=== PATIENT | male | born 1970 | race Caucasian/White ===

== ENCOUNTER 2016-09-12 11:17 | Emergency (ER) | payer OTHER ==
[2016-09-12 11:24] LABS: Glucose,Whole Blood 132 mg/dL (75-99)
[2016-09-12 11:32] VITALS: RESP 18
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
[2016-09-12 14:01] VITALS: BP 122/62; PULSE 78; TEMP 98.1
== END 2016-09-12 13:45 | disposition home or self-care (01) ==
LOC: EC 11:17
DX: M54.2 Cervicalgia (principal); R20.2 Paresthesia of skin; R45.1 Restlessness and agitation; I10 Essential (primary) hypertension; E11.9 Type 2 diabetes mellitus without complications; F31.9 Bipolar disorder, unspecified; F41.9 Anxiety disorder, unspecified; F17.200 Nicotine dependence, unspecified, uncomplicated; Z79.4 Long term (current) use of insulin; Z79.82 Long term (current) use of aspirin; Z79.84 Long term (current) use of oral hypoglycemic drugs; Z79.899 Other long term (current) drug therapy; Z88.0 Allergy status to penicillin; Z87.828 Personal history of other (healed) physical injury and trauma; Z98.890 Other specified postprocedural states; V53.6XXA Passenger in pick-up truck or van injured in collision with car, pick-up truck or van in traffic accident, initial encounter; Y92.410 Unspecified street and highway as the place of occurrence of the external cause
CPT/HCPCS: 36415; 70450; 72125; 93005; 99284

== ENCOUNTER 2017-09-10 03:15 | Emergency (ER) | payer BC | END 2017-09-10 05:05 | disposition home or self-care (01) | LOC: EC 03:15 | DX: F20.9 Schizophrenia, unspecified (principal); F17.200 Nicotine dependence, unspecified, uncomplicated; Z79.899 Other long term (current) drug therapy; Z88.0 Allergy status to penicillin | CPT/HCPCS: 82075; 99284 ==

== ENCOUNTER 2017-09-15 14:32 | Inpatient (IN) | payer BC, OTHER ==
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
[2017-09-15 16:03] LABS: Amphetamine Screen,Urine Not Detected (NotDetected); Barbiturate Screen,Urine Not Detected (NotDetected); Benzodiazepines Screen,Urine Detected (NotDetected); Cocaine Screen,Urine Not Detected (NotDetected); Methadone Screen, Urine Not Detected (NotDetected); Opiate Screen,Urine Detected (NotDetected); Oxycodone Screen, Urine Not Detected (NotDetected); Phencyclidine Screen,Urine Not Detected (NotDetected); Tricyclic Antidepressant,Urine Not Detected (NotDetected); Urn Cannabinoid Scrn Not Detected (NotDetected)
[2017-09-15] MEDS ORDERED: ACETAMINOPHEN TAB 325 MG TAB PO PRN (20:20)
[2017-09-15] MEDS ORDERED: LORazepam 1 MG TAB PO PRN (20:20)
[2017-09-15] MEDS ORDERED: MAG HYDROX/AL HYDROX/SIMETH 30 ML CUP PO PRN (20:20)
[2017-09-15] MEDS ORDERED: ZIPRASIDONE 20 MG VIAL IM PRN (20:20)
[2017-09-15] MEDS ORDERED: MAGNESIUM HYDROXIDE 2,400 MG/10 ML CUP PO PRN (20:20)
[2017-09-15] MEDS ORDERED: LORazepam 2 MG/ML INJ IM PRN (20:26)
[2017-09-15] MEDS: FENOFIBRATE 160 MG TAB PO SCH (21:12)
[2017-09-15] MEDS: diphenhydrAMINE 50 MG CAP PO SCH (21:13)
[2017-09-15] MEDS: LITHIUM CARBONATE 300 MG CAP PO SCH (21:13)
[2017-09-15] MEDS: NICOTINE 14MG/24HR PATCH TRANSDERM SCH (21:13)
[2017-09-15 22:12] LABS: Glucose,Whole Blood 266 mg/dL (75-99)
[2017-09-15] MEDS: INSULIN ASPART 100 UNIT/ML 1 ML 10 ML VIAL SQ SCH (22:12)
[2017-09-16 05:53] LABS: Glucose,Whole Blood 196 mg/dL (75-99)
[2017-09-16 06:12] LABS: Appearance,Urine Clear (Clear); Bilirubin,Urine Negative (Negative); Blood,Urine Negative (Negative); Color,Urine Yellow; Glucose,Urine (UA) Trace (Negative); Ketones,Urine Negative (Negative); Leukocyte Esterase,Urine Negative (Negative); Nitrite,Urine Negative (Negative); Protein,Urine Negative (Negative); Specific Gravity,Urine 1.015 (1.001-1.035); Urobilinogen,Urine <2.0 mg/dL (<2.0)
[2017-09-16] MEDS: PANTOPRAZOLE 40 MG TABLET PO SCH (07:56)
[2017-09-16] MEDS: metFORMIN 500 MG TAB PO SCH ×2 (07:57→17:50)
[2017-09-16] MEDS: INSULIN ASPART 100 UNIT/ML 1 ML 10 ML VIAL SQ SCH ×4 (07:57→20:17)
[2017-09-16] MEDS: LOSARTAN 50 MG TAB PO SCH (08:42)
[2017-09-16] MEDS ORDERED: B COMPLEX-VIT C-VIT E-ZINC 1 EACH TAB PO SCH (09:00)
[2017-09-16] MEDS: NICOTINE 14MG/24HR PATCH TRANSDERM SCH (09:04)
[2017-09-16] MEDS: NON-FORMULARY DRUG (Liraglutide [Victoza 2-Pak] 1.8 MG) SQ SCH (09:15)
[2017-09-16 09:54] LABS: Basophils % (A) 1 %; Eosinophils # (A) 0.2 k/uL (0-0.7); Eosinophils % (A) 3 %; HCT 42.3 % (39.0-53.0); HGB 13.9 gm/dL (13.0-17.5); Lymphocytes # (A) 1.3 k/uL (1.0-4.8); Lymphocytes % (A) 17 %; MCH 29.6 pg (25.0-35.0); MCHC 32.9 g/dL (31.0-37.0); MCV 90.1 fL (80.0-100.0); Monocytes # (A) 0.5 k/uL (0-1.0); Monocytes % (A) 6 %; Neutrophils # (A) 5.4 k/uL (1.3-7.7); Neutrophils % (A) 72 %; Platelet Count 213 k/uL (150-450); RDW 12.8 % (11.5-15.5); WBC 7.5 k/uL (3.8-10.6)
[2017-09-16 11:08] LABS: ALT 48 U/L (21-72); AST 29 U/L (17-59); Albumin 4.1 g/dL (3.5-5.0); Alkaline Phosphatase 49 U/L (38-126); Anion Gap 6 mmol/L; Blood Urea Nitrogen 19 mg/dL (9-20); Calcium 9.6 mg/dL (8.4-10.2); Carbon Dioxide 29 mmol/L (22-30); Chloride 103 mmol/L (98-107); Cholesterol 131 mg/dL (<200); Glucose 281 mg/dL (74-99); HDL Cholesterol 40 mg/dL (40-60); LDL Cholesterol,Calculated 73 mg/dL (0-99); Lithium 0.7 mmol/L; Potassium 4.4 mmol/L (3.5-5.1); Sodium 138 mmol/L (137-145); Total Bilirubin 0.4 mg/dL (0.2-1.3); Total Protein 6.8 g/dL (6.3-8.2); Triglycerides 90 mg/dL (<150)
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
[2017-09-16 12:18] LABS: Glucose,Whole Blood 223 mg/dL (75-99)
[2017-09-16] MEDS: CYANOCOBALAMIN 500 MCG TAB PO SCH (12:59)
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
[2017-09-16] MEDS: PIOGLITAZONE 15 MG TAB PO SCH (14:49)
[2017-09-16 17:49] LABS: Glucose,Whole Blood 216 mg/dL (75-99)
[2017-09-16 19:58] LABS: Glucose,Whole Blood 231 mg/dL (75-99)
[2017-09-16 20:15] LABS: Hemoglobin A1C 7.7 % (4.0-6.0)
[2017-09-16] MEDS: LITHIUM CARBONATE 300 MG CAP PO SCH (21:10)
[2017-09-16] MEDS: diphenhydrAMINE 50 MG CAP PO SCH (21:11)
[2017-09-16] MEDS: FENOFIBRATE 160 MG TAB PO SCH (21:11)
[2017-09-17 00:15] LABS: Glucose,Whole Blood 220 mg/dL (75-99)
[2017-09-17 06:05] LABS: Glucose,Whole Blood 240 mg/dL (75-99)
[2017-09-17] MEDS ORDERED: INSULIN ASPART 100 UNIT/ML 1 ML 10 ML VIAL SQ SCH (07:30)
[2017-09-17] MEDS: INSULIN ASPART 100 UNIT/ML 1 ML 10 ML VIAL SQ SCH ×4 (08:09→20:27)
[2017-09-17] MEDS: NICOTINE 14MG/24HR PATCH TRANSDERM SCH (08:57)
[2017-09-17] MEDS: LOSARTAN 50 MG TAB PO SCH (08:57)
[2017-09-17] MEDS: PANTOPRAZOLE 40 MG TABLET PO SCH (08:57)
[2017-09-17] MEDS: metFORMIN 500 MG TAB PO SCH ×2 (08:57→17:36)
[2017-09-17] MEDS: PIOGLITAZONE 15 MG TAB PO SCH (08:57)
--- NOTE | 2017-09-17 09:28 | P.PN ---
Progress Note - Text Interval history: The patient is found in the hallway he follows me to an interview room. He reports that his mood has improved. He reports sleeping much better last night however staff reported he only slept 3 hours. He reports looking forward to a visit from his girlfriend and other family members. Appetite stable. He has been showering. We reviewed his current medication. He does not feel the Benadryl is helpful for sleep and we discussed several other options. He has been tried on several other sleep aids and we want to avoid any habit forming ones. We decided to initiate Seroquel and he was agreeable. Mental status exam: The patient is an alert male appearing his stated age. He has long hair he's mildly disheveled hygiene is adequate. Speech is fluent spontaneous nonpressured. He maintains a constricted affect. He does continue to demonstrate some disorganization of thought that it seems less severe than yesterday. He likely has some paranoid thinking. When we discussed that topic he begins to endorse it and then stops himself from providing a full explanation. He demonstrates no verbal or physical aggressiveness he demonstrates no abnormal involuntary movements. Insight and judgment limited. He is pleasant and cooperative and easily directed during the session. He is reporting no auditory or visual hallucinations. Plan: The patient will continue on his current psychotropic medication. We will consider titrating the lithium further. I will add Seroquel to assist with sleep and thought organization. Benadryl will be discontinued. Vital signs reviewed. We will continue to monitor him for safety and encourage his full participation in the milieu.
[2017-09-17] MEDS: NON-FORMULARY DRUG (Liraglutide [Victoza 2-Pak] 1.8 MG) SQ SCH (11:43)
[2017-09-17 12:10] LABS: Glucose,Whole Blood 218 mg/dL (75-99)
[2017-09-17] MEDS: NON-FORMULARY DRUG (Liraglutide [Victoza 2-Pak] 0.6 MG) SQ SCH (12:10)
[2017-09-17] MEDS: CYANOCOBALAMIN 500 MCG TAB PO SCH (12:16)
[2017-09-17 15:31] LABS: Glucose,Whole Blood 203 mg/dL (75-99)
[2017-09-17 17:10] LABS: Glucose,Whole Blood 204 mg/dL (75-99)
[2017-09-17 20:42] LABS: Glucose,Whole Blood 194 mg/dL (75-99)
[2017-09-17] MEDS: QUEtiapine 50 MG TAB PO SCH (21:03)
[2017-09-17] MEDS: LITHIUM CARBONATE 300 MG CAP PO SCH (21:03)
[2017-09-17] MEDS: FENOFIBRATE 160 MG TAB PO SCH (21:03)
[2017-09-18 06:20] LABS: Glucose,Whole Blood 182 mg/dL (75-99)
[2017-09-18] MEDS: metFORMIN 500 MG TAB PO SCH ×2 (08:04→17:45)
[2017-09-18] MEDS: PANTOPRAZOLE 40 MG TABLET PO SCH (08:04)
[2017-09-18] MEDS: PIOGLITAZONE 15 MG TAB PO SCH (08:04)
[2017-09-18] MEDS: LOSARTAN 50 MG TAB PO SCH (08:05)
[2017-09-18] MEDS: NON-FORMULARY DRUG (Liraglutide [Victoza 2-Pak] 0.6 MG) SQ SCH (08:09)
[2017-09-18] MEDS: INSULIN ASPART 100 UNIT/ML 1 ML 10 ML VIAL SQ SCH ×5 (08:09→20:20)
[2017-09-18] MEDS: NICOTINE 14MG/24HR PATCH TRANSDERM SCH (08:18)
[2017-09-18 12:01] LABS: Glucose,Whole Blood 201 mg/dL (75-99)
[2017-09-18] MEDS: CYANOCOBALAMIN 500 MCG TAB PO SCH (13:06)
--- NOTE | 2017-09-18 13:37 | P.PN ---
Progress Note - Text Progress Note Date: 09/18/17 Interval History: Patient is a 46-year-old male who is being seen in coverage for Dr. Knight. Patient states that he slept better last night with the Seroquel. He also told me that he filled out his menu today. When asking the patient other questions he would begin to start responding and then stop and not complete his thought. When asked if he was feeling suspicious or paranoid. Patient started to discuss this and then abruptly stopped the conversation. Patient stated that he felt more rested today and stated that he was attending groups and activities. Mental Status: Appearance/Attitude: Patient is casually dressed, made good eye contact and was cooperative Behavior: Patient did not exhibit any psychomotor agitation or retardation Speech/Language: Patient spoke in a normal volume and rhythm, he was coherent and responded to questions Thought Process: Patient would begin to respond to a question and then abruptly stop and not complete the thought Thought Content: Patient denied auditory or visual hallucinations, when asking about feeling paranoid or suspicious he began to answer the question and then abruptly stopped. Patient stated that he slept last night and felt more rested this morning, he stated that his thinking was clear. Patient reported that his appetite is good and that he filled out his own menu today. Suicidal/Homicidal Ideation: Patient denied any current suicidal or homicidal ideation Sensorium/Cognition: Patient was alert and oriented to person, place, and time and his recent and remote memory appear grossly intact Mood/Affect: Patient's mood is guarded, his affect is blunted Insight/Judgment: Patient's insight and judgment are fair Assessment: Patient came to the interview room willingly, he responded to yes no questions appropriately but when asked questions where he needed to elaborate he would begin to answer the question and then abruptly stop and not complete his thought or provide further information. Patient has been attending groups and activities. He reported that he slept better last night and felt more rested this morning with the Seroquel. Patient stated that his appetite was good. Patient stated that his thinking was clearer today. Plan: Patient will continue on lithium 900 mg at bedtime, Seroquel 50 mg at at bedtime and he has been maintained on Abilify long-acting injectable. Patient continues to require hospitalization to further stabilize his mood.
[2017-09-18 17:36] LABS: Glucose,Whole Blood 173 mg/dL (75-99)
[2017-09-18 20:15] LABS: Glucose,Whole Blood 167 mg/dL (75-99)
[2017-09-18] MEDS: GABAPENTIN 100 MG CAP PO PRN (20:22)
[2017-09-18] MEDS: FENOFIBRATE 160 MG TAB PO SCH (20:22)
[2017-09-18] MEDS: LITHIUM CARBONATE 300 MG CAP PO SCH (20:22)
[2017-09-18] MEDS: QUEtiapine 50 MG TAB PO SCH (20:23)
[2017-09-19 06:11] LABS: Glucose,Whole Blood 202 mg/dL (75-99)
[2017-09-19] MEDS: PANTOPRAZOLE 40 MG TABLET PO SCH (08:01)
[2017-09-19] MEDS: NICOTINE 14MG/24HR PATCH TRANSDERM SCH (08:01)
[2017-09-19] MEDS: metFORMIN 500 MG TAB PO SCH ×2 (08:01→18:00)
[2017-09-19] MEDS: LOSARTAN 50 MG TAB PO SCH (08:02)
[2017-09-19] MEDS: PIOGLITAZONE 15 MG TAB PO SCH (08:02)
[2017-09-19] MEDS: INSULIN ASPART 100 UNIT/ML 1 ML 10 ML VIAL SQ SCH ×7 (08:05→21:02)
[2017-09-19] MEDS: NON-FORMULARY DRUG (Liraglutide [Victoza 2-Pak] 0.6 MG) SQ SCH (08:45)
--- NOTE | 2017-09-19 10:51 | P.PN ---
Progress Note - Text Interval history: The patient is found at the front office specialist he follows me to an interview room. Staff report that he continues to appear disorganized. He states that he slept last night appetite stable. He found that the Seroquel made him tired in the morning but he would like to continue the medication as it was helpful for sleep. He still is lacking some insight into his thought disorganization and requests to be discharged today. Discussed the importance of stabilizing him further prior to discharge. He continues to express pride that he has decided to discontinue cigarette smoking and feels that the nicotine patch has been beneficial. Mental status exam: The patient is alert he is dressed in his own clothing. He has long hair that is now in a ponytail. Hygiene is adequate. He has some fluctuation of affect. He is very briefly tearful and then reconstitutes. He expresses some feelings of irritability but maintained appropriate behavior and demonstrated no aggressiveness. He reports no suicidal or homicidal ideation intent or plan. He is demonstrated no abnormal involuntary movements. Insight and judgment limited. He is reporting no auditory or visual hallucinations endorses no specific delusions. Plan: The patient will continue on his current medication we will consider titrating the Seroquel further. He still demonstrates disorganization of thoughts and is not at baseline function. He requires continued psychiatric hospitalization. We will monitor him for safety. Vital signs reviewed.
[2017-09-19 11:27] LABS: Glucose,Whole Blood 197 mg/dL (75-99)
[2017-09-19] MEDS: CYANOCOBALAMIN 500 MCG TAB PO SCH (12:56)
[2017-09-19] MEDS: NICOTINE 7MG/24HR PATCH TRANSDERM SCH (12:58)
[2017-09-19 17:34] LABS: Glucose,Whole Blood 176 mg/dL (75-99)
[2017-09-19 19:46] LABS: Glucose,Whole Blood 204 mg/dL (75-99)
[2017-09-19] MEDS: FENOFIBRATE 160 MG TAB PO SCH (21:02)
[2017-09-19] MEDS: QUEtiapine 50 MG TAB PO SCH (21:02)
[2017-09-20 06:28] LABS: Glucose,Whole Blood 202 mg/dL (75-99)
[2017-09-20] MEDS: NON-FORMULARY DRUG (Liraglutide [Victoza 2-Pak] 0.6 MG) SQ SCH (08:28)
[2017-09-20] MEDS: INSULIN ASPART 100 UNIT/ML 1 ML 10 ML VIAL SQ SCH ×7 (08:33→20:22)
[2017-09-20] MEDS: metFORMIN 500 MG TAB PO SCH ×2 (08:36→17:55)
[2017-09-20] MEDS: PANTOPRAZOLE 40 MG TABLET PO SCH (08:36)
[2017-09-20] MEDS: LOSARTAN 50 MG TAB PO SCH (08:36)
[2017-09-20] MEDS: PIOGLITAZONE 15 MG TAB PO SCH (08:36)
--- NOTE | 2017-09-20 09:01 | P.PN ---
Progress Note - Text Interval history: The patient is found the lead front desk agent he follows me to an interview room. He reports his mood is good he states he slept throughout the night. Appetite stable. He states that his thoughts are still disorganized but he feels they are improving. He is looking forward to his support meeting he states is scheduled for later today. We discussed the psychotropic medications. We discussed titrating the Seroquel further and he is agreeable. We will await the lithium lab draw. Mental status exam: The patient is alert he is pleasant and cooperative. He presents with adequate hygiene grooming. He is dressed in his own clothing. He has been changing his clothing from day to day. Eye contact is good speech is fluent spontaneous nonpressured. He still demonstrate some disorganization of thought but it appears to be slowly improving. He reports no suicidal or homicidal ideation intent or plan. He is reporting no auditory or visual hallucinations or any specific delusions. There may be some delusional thought content present he is not disclosing. He demonstrates no verbal or physical aggressiveness he demonstrates no abnormal involuntary movements. Affect is constricted. Plan: The patient will continue on his current psychotropic medication however we will titrate the Seroquel to 100 mg at bedtime. We will continue to monitor him for safety and encourage his participation in the milieu. Vital signs reviewed.
[2017-09-20] MEDS: NICOTINE 7MG/24HR PATCH TRANSDERM SCH ×2 (09:05→12:40)
[2017-09-20 09:58] LABS: Blood Urea Nitrogen 17 mg/dL (9-20); Lithium 0.4 mmol/L
[2017-09-20] MEDS: CYANOCOBALAMIN 500 MCG TAB PO SCH (11:49)
[2017-09-20 12:38] LABS: Glucose,Whole Blood 159 mg/dL (75-99)
[2017-09-20 17:30] LABS: Glucose,Whole Blood 211 mg/dL (75-99)
[2017-09-20 20:16] LABS: Glucose,Whole Blood 214 mg/dL (75-99)
[2017-09-20] MEDS: FENOFIBRATE 160 MG TAB PO SCH (20:23)
[2017-09-20] MEDS: QUEtiapine 100 MG TAB PO SCH (20:23)
[2017-09-20] MEDS: LITHIUM CARBONATE 300 MG CAP PO SCH (20:23)
[2017-09-21] MEDS: HYDROcodone/APAP 5-325MG 1 EACH TAB PO PRN ×2 (02:46→16:42)
[2017-09-21 06:47] LABS: Glucose,Whole Blood 215 mg/dL (75-99)
[2017-09-21] MEDS: INSULIN ASPART 100 UNIT/ML 1 ML 10 ML VIAL SQ SCH ×7 (07:47→20:37)
[2017-09-21] MEDS: NON-FORMULARY DRUG (Liraglutide [Victoza 2-Pak] 0.6 MG) SQ SCH (08:13)
[2017-09-21] MEDS: PANTOPRAZOLE 40 MG TABLET PO SCH (08:14)
[2017-09-21] MEDS: metFORMIN 500 MG TAB PO SCH ×2 (08:14→17:56)
[2017-09-21] MEDS: LOSARTAN 50 MG TAB PO SCH (08:14)
[2017-09-21] MEDS: PIOGLITAZONE 15 MG TAB PO SCH (08:14)
[2017-09-21] MEDS: NICOTINE 7MG/24HR PATCH TRANSDERM SCH ×2 (08:14→08:15)
[2017-09-21] MEDS: GABAPENTIN 100 MG CAP PO PRN (08:14)
--- NOTE | 2017-09-21 12:02 | P.PN ---
Progress Note - Text Interval history: The patient is found in the hallway he follows me to an interview room. He reports his moods improving. He states he had a good family meeting with his girlfriend last evening. Social work notes were reviewed. They indicate that his significant other felt that he was much improved and she was comfortable with discharge tomorrow. We discussed giving the patient his Abilify maintena injection tomorrow and he is agreeable. He has no other questions or concerns regarding his medications. He has been attending groups. Staff report no agitated behavior from him. Mental status exam: The patient is alert he is dressed in his own clothing hygiene adequate grooming adequate. Speech is fluent spontaneous nonpressured. Affect appears more euthymic. He is reporting no suicidal or homicidal ideation intent or plan. He is endorsing no auditory or visual hallucinations. He endorses no specific delusions today. Thought process is becoming more linear. He will have some times where he is off-topic but for the most part participated in the conversation appropriately. Insight and judgment improving. He demonstrates no verbal or physical aggressiveness. Plan: The patient will continue on his current medication we will plan on giving him the Abilify maintena injection tomorrow. If he is sufficiently improved and clinically stable we will consider discharging him tomorrow. We will continue to monitor him for safety. He is encouraged to continue participating in the milieu.
[2017-09-21 12:29] LABS: Glucose,Whole Blood 210 mg/dL (75-99)
[2017-09-21] MEDS: CYANOCOBALAMIN 500 MCG TAB PO SCH (12:29)
[2017-09-21 17:47] LABS: Glucose,Whole Blood 175 mg/dL (75-99)
[2017-09-21 20:34] LABS: Glucose,Whole Blood 119 mg/dL (75-99)
[2017-09-21] MEDS: LITHIUM CARBONATE 300 MG CAP PO SCH (20:52)
[2017-09-21] MEDS: FENOFIBRATE 160 MG TAB PO SCH (20:52)
[2017-09-21] MEDS: QUEtiapine 100 MG TAB PO SCH (20:52)
[2017-09-22 06:48] LABS: Glucose,Whole Blood 197 mg/dL (75-99)
[2017-09-22 06:51] VITALS: BP 119/77; PULSE 75; RESP 18; TEMP 97.7
[2017-09-22] MEDS: INSULIN ASPART 100 UNIT/ML 1 ML 10 ML VIAL SQ SCH ×4 (07:56→12:48)
[2017-09-22] MEDS: LOSARTAN 50 MG TAB PO SCH (08:01)
[2017-09-22] MEDS: PANTOPRAZOLE 40 MG TABLET PO SCH (08:02)
[2017-09-22] MEDS: HYDROcodone/APAP 5-325MG 1 EACH TAB PO PRN (08:02)
[2017-09-22] MEDS: metFORMIN 500 MG TAB PO SCH (08:02)
[2017-09-22] MEDS: PIOGLITAZONE 15 MG TAB PO SCH (08:02)
[2017-09-22] MEDS ORDERED: ARIPiprazole 400 MG VIAL (NO CHARGE) IM ONE ×2 (09:00→09:30)
[2017-09-22] MEDS: NON-FORMULARY DRUG (Liraglutide [Victoza 2-Pak] 0.6 MG) SQ SCH (09:01)
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
[2017-09-22 12:32] LABS: Glucose,Whole Blood 177 mg/dL (75-99)
[2017-09-22] MEDS: CYANOCOBALAMIN 500 MCG TAB PO SCH (12:37)
== END 2017-09-22 17:49 | disposition home or self-care (01) | DRG 885 ==
LOC: EC 14:32 → 3MHU 18:38
PROVIDERS: ADMIT Psychiatry & Neurology Psychiatry; ATTEND Psychiatry & Neurology Psychiatry
DX: F25.9 Schizoaffective disorder, unspecified (principal); E11.40 Type 2 diabetes mellitus with diabetic neuropathy, unspecified; K21.9 Gastro-esophageal reflux disease without esophagitis; E66.3 Overweight; E78.5 Hyperlipidemia, unspecified; F41.9 Anxiety disorder, unspecified; G89.29 Other chronic pain; I10 Essential (primary) hypertension; F17.210 Nicotine dependence, cigarettes, uncomplicated; Z71.6 Tobacco abuse counseling; Z68.34 Body mass index [BMI] 34.0-34.9, adult; Z79.4 Long term (current) use of insulin; Z79.899 Other long term (current) drug therapy; Z87.81 Personal history of (healed) traumatic fracture; Z98.1 Arthrodesis status; Z56.0 Unemployment, unspecified; Z86.718 Personal history of other venous thrombosis and embolism; Z95.828 Presence of other vascular implants and grafts; Z88.0 Allergy status to penicillin
CPT/HCPCS: 80053; 80061; 80178; 80306; 81003; 82565; 83036; 84443; 84520; 85025; 99285

== ENCOUNTER 2020-01-26 05:59 | Day surgery (SDC) | payer BC, MEDICAID ==
[2020-01-25 09:21] VITALS: BMI 39.9
[~2020-01-26 05:59] MED LIST: CLINDAMYCIN 600 MG in DEXTROSE 5% IN WATER 50 ML IVPB PRN; FAMOTIDINE 20 MG/2 ML VIAL IV PRN; HYDROmorphone 0.5 MG/0.5 ML SYRINGE IVP PRN; LACTATED RINGERS 1,000 ML IV SCH; MIDAZOLAM 2 MG/2 ML VIAL IV PRN; ONDANSETRON 4 MG/2 ML VIAL IVP PRN; fentaNYL (PF) 50 MCG/ML 2 ML AMP IV PRN
[2020-01-26 06:41] LABS: Glucose,Whole Blood 260 mg/dL (75-99)
[2020-01-26] MEDS ORDERED: LACTATED RINGERS 1,000 ML IV ONE ×2 (06:54→07:56)
[2020-01-26] MEDS ORDERED: SUCCINYLCHOLINE CHLORIDE 100 MG/5 ML SYR IV ONE (06:55)
[2020-01-26] MEDS ORDERED: fentaNYL (PF) 50 MCG/ML 2 ML AMP ONE (06:55)
[2020-01-26] MEDS ORDERED: LIDOCAINE 1% INJ 10MG/ML (20 ML MDV) ONE (06:55)
[2020-01-26] MEDS ORDERED: MIDAZOLAM 2 MG/2 ML VIAL ONE (06:55)
[2020-01-26] MEDS ORDERED: PROPOFOL 10 MG/ML 20 ML VIAL IV ONE (06:55)
[2020-01-26] MEDS ORDERED: DEXAMETHASONE SOD PHOSPHATE 4 MG/ML 1 ML VIAL IVP ONE (06:55)
[2020-01-26] MEDS ORDERED: ePHEDrine SULFATE/0.9% NACL/PF 50 MG/5 ML SYRINGE IV ONE (06:55)
[2020-01-26 07:20] LABS: African American GFR (CKD) >90 (>60 ml/min/1.73 sqM); Blood Urea Nitrogen 25 mg/dL (9-20); Non-African American GFR(CKD) >90 (>60 ml/min/1.73 sqM); Potassium 4.6 mmol/L (3.5-5.1)
[2020-01-26] MEDS ORDERED: LIDOCAINE 1%-EPI 1:100,000 20 ML VIAL SUBMUCOSAL ONE (07:28)
--- NOTE | 2020-01-26 08:05 | P.OP ---
Date of Procedure: 01/26/20 Preoperative Diagnosis: Right buccal intraoral submucosal lesion Postoperative Diagnosis: Same Procedure(s) Performed: Intraoral excision right submucosal lesion with layered closure Anesthesia: MAIKEL Surgeon: Marty Bañuelos Estimated Blood Loss (ml): 2 Pathology: other (Right buccal submucosally) Condition: stable Disposition: PACU Indications for Procedure: This is a 49-year-old white male with a slowly enlarging submucosal lesion right buccal which is palpable intraoral more so than externally Operative Findings: Submucosal firm rounded lesion with white hue right buccal with appearance of an overlying pore this appeared well encapsulated Description of Procedure: The patient was brought in the operative suite and placed in a supine position. Patient underwent induction of general anesthesia with oral endotracheal intubation without difficulty. General anesthesia was chosen due to the location and to secure airway rather than sedation. Patient was prepped and draped in usual aseptic fashion. 1% lidocaine with [id number] epinephrine was infused submucosally in field block fashion and this was allowed to work for 7 minutes vasoconstrictive effect. An elliptical incision was fashion over the lesion to include the overlying pore and excision of the lesion was performed into the submucosal muscular layer to excise this lesion grossly entirely. Small arterial vessel was encountered which was doubly clamped divided and ligated with 3-0 Vicryl suture. All other hemostasis was secured with needlepoint electrocautery. Lesion was excised grossly entirely from the surrounding tissue. The wound was copiously irrigated sterile normal saline and excellent hemostasis was noted. The submucosal layer was closed with inverted interrupted 4-0 chromic suture and the mucosal layer was closed with simple interrupted 3-0 Vicryl suture. The patient was allowed to emerge from general anesthesia having tolerated procedure well was extubated in the operating suite and transferred to postop recovery area in satisfactory condition.
[2020-01-26 08:15] VITALS: RESP 16; TEMP 98.6
[2020-01-26 08:21] LABS: Glucose,Whole Blood 252 mg/dL (75-99)
[2020-01-26] MEDS ORDERED: INSULIN ASPART (NovoLOG) 100 UNIT/ML VIAL SQ ONE (08:24)
[2020-01-26 09:01] VITALS: BP 137/87; PULSE 67
[2020-01-26 09:13] LABS: Glucose,Whole Blood 301 mg/dL (75-99)
== END 2020-01-26 09:31 | disposition home or self-care (01) ==
LOC: OR 05:59
PROVIDERS: ATTEND Otolaryngology
DX: K13.70 Unspecified lesions of oral mucosa (principal); I10 Essential (primary) hypertension; E11.9 Type 2 diabetes mellitus without complications; K21.9 Gastro-esophageal reflux disease without esophagitis; F17.210 Nicotine dependence, cigarettes, uncomplicated; F41.9 Anxiety disorder, unspecified; F31.9 Bipolar disorder, unspecified; F25.9 Schizoaffective disorder, unspecified; Z82.49 Family history of ischemic heart disease and other diseases of the circulatory system; Z83.42 Family history of familial hypercholesterolemia; Z97.2 Presence of dental prosthetic device (complete) (partial); Z88.0 Allergy status to penicillin
CPT/HCPCS: 40816; 82565; 84132; 84520; J2250; J1100; J2405; J2001; J3010; J0330; J2704; 88305

== ENCOUNTER 2022-11-09 07:26 | Inpatient (IN) | payer BC, OTHER ==
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
[2022-11-09] MEDS ORDERED: VANCOMYCIN IV PER PHARMACY 1 EACH MISC MISCELLANE PRN (08:33)
[2022-11-09] MEDS ORDERED: ACETAMINOPHEN TAB 325 MG TAB PO PRN (08:34)
[2022-11-09] MEDS ORDERED: NALOXONE 0.4 MG/ML 1 ML VIAL IV PRN ×2 (08:34→14:00)
[2022-11-09] MEDS ORDERED: LEVOFLOXACIN 750MG-D5W PMX 750 MG in DEXTROSE/WATER 1 150ML.BAG IVPB ONE (08:45)
[2022-11-09] MEDS ORDERED: metroNIDAZOLE-NS PMX 500 MG in SALINE 1 100ML.BAG IVPB ONE (08:45)
[2022-11-09 09:12] LABS: Basophils % (A) 0 %; Eosinophils # (A) 0.2 k/uL (0-0.7); Eosinophils % (A) 2 %; HCT 42.3 % (39.0-53.0); HGB 13.7 gm/dL (13.0-17.5); Lymphocytes # (A) 1.8 k/uL (1.0-4.8); Lymphocytes % (A) 16 %; MCH 29.7 pg (25.0-35.0); MCHC 32.3 g/dL (31.0-37.0); MCV 92.1 fL (80.0-100.0); Mean Platelet Volume 9.4; Monocytes % (A) 9 %; Neutrophils # (A) 8.3 k/uL (1.3-7.7); Neutrophils % (A) 72 %; Platelet Count 207 k/uL (150-450); RBC 4.59 m/uL (4.30-5.90); RDW 12.5 % (11.5-15.5); WBC 11.5 k/uL (3.8-10.6)
[2022-11-09] MEDS: SODIUM CHLORIDE 0.9% 1,000 ML IV SCH ×2 (09:16→21:10)
[2022-11-09 09:26] LABS: INR 0.9 (<1.2); Partial Thromboplastin Time 25.8 sec (22.0-30.0); Prothrombin Time 9.8 sec (9.0-12.0)
[2022-11-09] MEDS ORDERED: VANCOMYCIN 1,750 MG in SODIUM CHLORIDE 0.9% 500 ML 500 ML IVPB ONE (09:30)
[2022-11-09 09:33] LABS: ALT 24 U/L (4-49); AST 26 U/L (17-59); African American GFR (CKD) >90 (>60 ml/min/1.73 sqM); Albumin 4.4 g/dL (3.5-5.0); Alkaline Phosphatase 88 U/L (38-126); Anion Gap 13 mmol/L; Blood Urea Nitrogen 25 mg/dL (9-20); Carbon Dioxide 27 mmol/L (22-30); Chloride 97 mmol/L (98-107); Glucose 190 mg/dL (74-99); Non-African American GFR(CKD) >90 (>60 ml/min/1.73 sqM); Potassium 4.1 mmol/L (3.5-5.1); Sodium 137 mmol/L (137-145); Total Bilirubin 0.6 mg/dL (0.2-1.3); Total Protein 8.1 g/dL (6.3-8.2)
[2022-11-09] MEDS ORDERED: traMADol 50 MG TAB PO PRN (09:35)
[2022-11-09] MEDS ORDERED: DEXTROSE 50% SYRINGE 50 ML IVP PRN ×2 (09:35)
[2022-11-09] MEDS ORDERED: PROCHLORPERAZINE INJ 10 MG/2 ML VIAL IVP PRN (09:37)
--- NOTE | 2022-11-09 10:07 | XR ---
EXAMINATION TYPE: XR foot complete RT DATE OF EXAM: 11/09/2022 COMPARISON: None HISTORY: Second toe infection TECHNIQUE: 3 view right foot FINDINGS: There is soft tissue swelling over the second digit. There is erosion of the medial aspect middle phalanx second digit compatible with osteomyelitis. No acute fractures are identified. IMPRESSION: 1. Erosion of the medial middle phalanx cortex with lucency within the mid phalanx. Findings can be compatible with osteomyelitis.
[2022-11-09 12:35] LABS: Glucose,Whole Blood 209 mg/dL (70-110)
[2022-11-09] MEDS: INSULIN ASPART (NovoLOG) 100 UNIT/ML VIAL SQ SCH ×3 (12:43→21:08)
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
[2022-11-09] MEDS: NICOTINE 21MG/24HR PATCH TRANSDERM SCH (15:04)
[2022-11-09] MEDS: metroNIDAZOLE-NS PMX 500 MG in SALINE 1 100ML.BAG IVPB SCH ×3 (16:17→23:38)
[2022-11-09] MEDS: HYDROcodone/APAP 5-325MG 1 EACH TAB PO PRN ×2 (16:18→23:41)
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
[2022-11-09 16:59] LABS: Glucose,Whole Blood 197 mg/dL (70-110)
[2022-11-09] MEDS: HYDROmorphone 1 MG/ML 1 ML SYRINGE IVP PRN (18:30)
[2022-11-09] MEDS: CEFEPIME 2 GM in SODIUM CHLORIDE 0.9% 100 ML IVPB SCH ×2 (19:11→19:17)
[2022-11-09 20:08] LABS: Glucose,Whole Blood 296 mg/dL (70-110)
[2022-11-09] MEDS: PROPRANOLOL 10 MG TAB PO SCH (21:07)
[2022-11-09] MEDS: PREGABALIN 50 MG CAP PO SCH (21:07)
[2022-11-09] MEDS: LOSARTAN 50 MG TAB PO SCH (21:07)
[2022-11-09] MEDS: busPIRone HCl 10 MG TAB PO SCH (21:07)
[2022-11-09] MEDS: VANCOMYCIN 1,500 MG in SODIUM CHLORIDE 0.9% 500 ML 500 ML IVPB SCH (21:10)
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
[2022-11-10] MEDS: CEFEPIME 2 GM in SODIUM CHLORIDE 0.9% 100 ML IVPB SCH ×3 (03:13→20:29)
[2022-11-10] MEDS: HYDROmorphone 1 MG/ML 1 ML SYRINGE IVP PRN ×4 (03:21→23:27)
[2022-11-10] MEDS: metroNIDAZOLE-NS PMX 500 MG in SALINE 1 100ML.BAG IVPB SCH ×4 (04:41→23:29)
[2022-11-10] MEDS: VANCOMYCIN 1,500 MG in SODIUM CHLORIDE 0.9% 500 ML 500 ML IVPB SCH ×3 (05:50→20:28)
[2022-11-10 06:21] LABS: Glucose,Whole Blood 137 mg/dL (70-110)
[2022-11-10] MEDS: INSULIN DETEMIR (LEVEMIR) 100 UNIT/ML SYR SQ SCH (08:21)
[2022-11-10] MEDS: INSULIN ASPART (NovoLOG) 100 UNIT/ML VIAL SQ SCH ×4 (08:26→21:31)
[2022-11-10] MEDS: ENOXAPARIN 40 MG/0.4 ML SYRINGE SQ SCH (08:27)
[2022-11-10] MEDS: busPIRone HCl 10 MG TAB PO SCH ×2 (08:28→20:30)
[2022-11-10] MEDS: FENOFIBRATE 160 MG TAB PO SCH (08:28)
[2022-11-10] MEDS: PREGABALIN 50 MG CAP PO SCH ×2 (08:28→20:29)
[2022-11-10] MEDS: PROPRANOLOL 10 MG TAB PO SCH ×2 (08:28→20:29)
[2022-11-10] MEDS: PANTOPRAZOLE 40 MG TABLET PO SCH (08:28)
[2022-11-10] MEDS: NICOTINE 21MG/24HR PATCH TRANSDERM SCH (08:29)
[2022-11-10] MEDS: HYDROcodone/APAP 5-325MG 1 EACH TAB PO PRN (08:31)
[2022-11-10] MEDS ORDERED: LEVOFLOXACIN 750MG-D5W PMX 750 MG in DEXTROSE/WATER 1 150ML.BAG IVPB SCH (09:00)
[2022-11-10 09:21] LABS: Basophils # (A) 0.02 X 10*3/uL (0.00-0.10); Basophils % (A) 0.2 %; Eosinophils # (A) 0.16 X 10*3/uL (0.04-0.35); Eosinophils % (A) 1.7 %; HCT 36.8 % (39.6-50.0); HGB 11.5 d/dL (13.0-17.0); Lymphocytes # (A) 1.79 X 10*3/uL (0.90-5.00); Lymphocytes % (A) 18.9 %; MCH 28.8 pg (27.0-32.0); MCHC 31.3 d/dL (32.0-37.0); Mean Platelet Volume 11.7 FL (9.5-12.2); Monocytes # (A) 1.01 X 10*3/uL (0.20-1.00); Monocytes % (A) 10.7 %; NRBC Per 100 WBC 0 X 10*3/uL (0.00-0.01); Neutrophils # (A) 6.47 X 10*3/uL (1.80-7.70); Neutrophils % (A) 68.3 %; Platelet Count 186 X 10*3/uL (140-440); RDW 12.5 % (11.5-14.5); WBC 9.47 X 10*3/uL (4.50-10.00)
[2022-11-10 09:35] LABS: ALT 13 U/L (10-49); AST 14 U/L (14-35); Albumin 3.2 d/dL (3.8-4.9); Albumin/Globulin Ratio 1.39 Ratio (1.60-3.17); Alkaline Phosphatase 56 U/L (41-126); BUN/Creat Ratio 21.14 Ratio (12.00-20.00); Blood Urea Nitrogen 14.8 mg/dL (9.0-27.0); Carbon Dioxide 23.7 mmol/L (21.6-31.8); Chloride 107 mmol/L (96-109); Globulin 2.3 d/dL (1.6-3.3); Glucose 125 mg/dL (70-110); Potassium 4.1 mmol/L (3.5-5.5); Sodium 141 mmol/L (135-145); Total Bilirubin 0.3 mg/dL (0.3-1.2); Total Protein 5.5 d/dL (6.2-8.2)
[2022-11-10] MEDS: SODIUM CHLORIDE 0.9% 1,000 ML IV SCH (10:45)
[2022-11-10 11:35] LABS: Glucose,Whole Blood 146 mg/dL (70-110)
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
--- NOTE | 2022-11-10 14:29 | CT ---
EXAMINATION TYPE: CT foot RT w con DATE OF EXAM: 11/09/2022 COMPARISON: X-ray 11/09/2022 HISTORY: Right foot cellulitis CT DLP: 443.9 mGycm Automated exposure control for dose reduction was used. Contrast: None Technique: Axial images 2 mm thick sections. Reconstructed images in coronal and sagittal planes are reviewed on the computer. FINDINGS: There is loss of cortex along the medial femoral phalanx second digit. Couple of punctate collections of air proximal within the middle phalanx. Small amount of air is lateral to the middle phalanx. Fin dings can be compatible with acute osteomyelitis. Soft tissue swelling is through the proximal to mid second digit right foot. Joint spaces appear preserved. Remaining osseous structures are intact. 3 reconstructed images are re viewed on computer again demonstrating erosion middle phalanx second digit. There appears to be some soft tissue swelling over the lateral malleolus less degree medial malleolus . There is some extension of soft tissue swelling and anterolateral dorsum of the foot. Diffuse incre ase densities through the second digit subcutaneous tissues. IMPRESSION: 1. FINDINGS WHICH CAN BE COMPATIBLE WITH ACUTE OSTEOMYELITIS RIGHT MIDDLE PHALANX SECOND DIGIT. GAS-F ORMING ORGANISM SHOULD BE CONSIDERED GIVEN SOME MINIMAL AIR PRESENT AT THIS LOCATION ON THIS EXAM.
[2022-11-10] MEDS ORDERED: IV FLUID CONTINUATION 200 ML IV ONE (15:22)
[2022-11-10] MEDS ORDERED: MIDAZOLAM 2 MG/2 ML VIAL ONE (15:27)
[2022-11-10] MEDS ORDERED: fentaNYL (PF) 50 MCG/ML 2 ML AMP ONE (15:27)
[2022-11-10] MEDS ORDERED: KETAMINE 10 MG/ML 20 ML VIAL ONE (15:27)
[2022-11-10] MEDS ORDERED: PROPOFOL 10 MG/ML 20 ML VIAL IV ONE (15:27)
[2022-11-10] MEDS ORDERED: LIDOCAINE 1% INJ 10MG/ML (20 ML MDV) SQ ONE (15:32)
[2022-11-10] MEDS ORDERED: SODIUM CHLORIDE 0.9% 500 ML 500 ML IV ONE (15:56)
[2022-11-10 16:05] LABS: Glucose,Whole Blood 123 mg/dL (70-110)
--- NOTE | 2022-11-10 16:07 | P.PCN ---
Description of Procedure: Preop diagnosis wet gangrene of the right foot second toe Postoperative same Procedure. Amputation the right foot second toe Procedure patient brought to the operating room right foot was prepped and draped applied sterile manner patient had a marked redness swelling of the right foot second toe 1% lidocaine were infiltrated with IV sedation elliptical incision made on the dorsal aspect of the foot deepened through skin fat and fascia tendon were divided on the dorsal suspect of the foot then the incision was extended the plantar aspect deepened through skin fat and fascia and tendons were divided on the dorsal suspect the foot and patient request centimeters which was suture ligated patient had a marked inflammation of the right the metatarsal phalangeal joint ligaments are divided with the amputation at the metatarsophalangeal joint is #4 deep culture for aerobic anaerobic wound was irrigated with saline hemostasis well controlled excess silver placed at the wound pressure dressing applied patient for the procedure well and transferred to recovery room certification
[2022-11-10 16:56] LABS: Glucose,Whole Blood 117 mg/dL (70-110)
[2022-11-10] MEDS ORDERED: VANCOMYCIN TROUGH DUE 1 EACH MISC MISCELLANE ONE (19:00)
[2022-11-10] MEDS: LOSARTAN 50 MG TAB PO SCH (20:29)
[2022-11-10 21:17] LABS: Glucose,Whole Blood 293 mg/dL (70-110)
[2022-11-11] MEDS: SODIUM CHLORIDE 0.9% 1,000 ML IV SCH ×2 (00:56→16:11)
[2022-11-11] MEDS: CEFEPIME 2 GM in SODIUM CHLORIDE 0.9% 100 ML IVPB SCH ×2 (03:20→11:42)
[2022-11-11] MEDS: VANCOMYCIN 1,750 MG in SODIUM CHLORIDE 0.9% 500 ML 500 ML IVPB SCH ×2 (03:21→11:42)
[2022-11-11] MEDS: HYDROmorphone 1 MG/ML 1 ML SYRINGE IVP PRN ×2 (05:14→21:33)
[2022-11-11 06:34] LABS: Glucose,Whole Blood 211 mg/dL (70-110)
[2022-11-11] MEDS: INSULIN ASPART (NovoLOG) 100 UNIT/ML VIAL SQ SCH ×4 (06:43→21:35)
[2022-11-11] MEDS: metroNIDAZOLE-NS PMX 500 MG in SALINE 1 100ML.BAG IVPB SCH (06:43)
[2022-11-11 08:38] LABS: HGB 11.9 d/dL (13.0-17.0); MCH 29.2 pg (27.0-32.0); MCHC 32.2 d/dL (32.0-37.0); MCV 90.7 FL (80.0-97.0); Mean Platelet Volume 11.9 FL (9.5-12.2); NRBC Per 100 WBC 0 X 10*3/uL (0.00-0.01); Platelet Count 212 X 10*3/uL (140-440); RBC 4.08 X 10*6/uL (4.40-5.60); RDW 12.4 % (11.5-14.5); WBC 9.15 X 10*3/uL (4.50-10.00)
[2022-11-11] MEDS: busPIRone HCl 10 MG TAB PO SCH ×2 (08:44→21:34)
[2022-11-11] MEDS: ENOXAPARIN 40 MG/0.4 ML SYRINGE SQ SCH (08:44)
[2022-11-11] MEDS: FENOFIBRATE 160 MG TAB PO SCH (08:44)
[2022-11-11] MEDS: PROPRANOLOL 10 MG TAB PO SCH ×2 (08:45→21:35)
[2022-11-11] MEDS: INSULIN DETEMIR (LEVEMIR) 100 UNIT/ML SYR SQ SCH (08:45)
[2022-11-11] MEDS: PANTOPRAZOLE 40 MG TABLET PO SCH (08:45)
[2022-11-11] MEDS: NICOTINE 21MG/24HR PATCH TRANSDERM SCH (08:46)
[2022-11-11] MEDS: PREGABALIN 50 MG CAP PO SCH ×2 (08:48→21:34)
[2022-11-11 09:16] LABS: BUN/Creat Ratio 22.67 Ratio (12.00-20.00); Blood Urea Nitrogen 13.6 mg/dL (9.0-27.0); Calcium 8.6 mg/dL (8.7-10.3); Carbon Dioxide 24.1 mmol/L (21.6-31.8); Chloride 102 mmol/L (96-109); Glucose 223 mg/dL (70-110); Potassium 4.4 mmol/L (3.5-5.5); Sodium 135 mmol/L (135-145)
[2022-11-11 12:40] LABS: Glucose,Whole Blood 296 mg/dL (70-110)
--- NOTE | 2022-11-11 12:46 | P.PN ---
Progress Note - Text patient came with wet gangrene of the right foot second toe patient went for ray amputation yesterday today we have changed her dressing base of the wound no discharge noted we've been using Aquacel silver dressing has been changed we will start using Sentell cream for tomorrow continue with IV antibiotic
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
--- NOTE | 2022-11-11 14:11 | P.EN ---
Patient has mobility limitations that significantly impairs the ability to participate in MRADLs in the home. Patient is able to safely use a walker. Patient's functional mobility deficit can be resolved by the use of a walker.
[2022-11-11 14:58] VITALS: BMI 33.3
[2022-11-11] MEDS: COLLAGENASE 250 UNIT/GM OINTMENT 30 GM TUBE TOPICAL SCH (15:56)
[2022-11-11] MEDS ORDERED: metroNIDAZOLE-NS PMX 500 MG in SALINE 1 100ML.BAG IVPB SCH (16:00)
[2022-11-11] MEDS: HYDROcodone/APAP 5-325MG 1 EACH TAB PO PRN (16:06)
[2022-11-11] MEDS: metroNIDAZOLE 500 MG TAB PO SCH ×2 (16:14→21:34)
[2022-11-11 17:25] LABS: Glucose,Whole Blood 321 mg/dL (70-110)
--- NOTE | 2022-11-11 18:14 | P.PN ---
Subjective Progress Note Date: 11/10/22 Principal diagnosis: Right second toe diabetic foot infection/Osteomyelitis Patient is a 52-year-old male with a past medical history significant for diabetes mellitus DVT reflux hypertension osteoarthritis presenting to the ER concerning for the right second toe infection , patient did have problem with his stool for a few months patient foot x-ray did shows bony erosion concerning for osteomyelitis. Patient has been evaluated by vascular surgery and the patient is status post right second toe amputation completed 11/10/2022. on today's evaluation that is 11/10/2022, the patient denies having any fever or any chills, the patient is breathing comfortably on Coumadin for chest pain shortness of cough no abdominal pain syndrome compatible pain to the right foot with improvement with the pain medication. Patient did have a white count 9.47, creatinine is 0.7 local cultures pending Objective - Vital Signs Vital signs: Vital Signs Temp 98.2 F 11/10/22 07:00 Pulse 78 11/10/22 07:00 Resp 16 11/10/22 07:00 BP 130/74 11/10/22 07:00 Pulse Ox 98 11/10/22 07:00 FiO2 Intake & Output 11/09/22 11/10/22 11/10/22 18:59 06:59 18:59 Weight 99.337 kg Other: # Voids 3 - Exam GENERAL DESCRIPTION: Middle-aged male lying in bed in no distress RESPIRATORY SYSTEM: Unlabored breathing , decreased breath sounds at bases HEART: S1 S2 regular rate and rhythm , ABDOMEN: Soft , no tenderness EXTREMITIES: Right foot is currently dressed - Labs CBC & Chem 7: 11/11/22 05:55 11/11/22 05:55 Labs: Abnormal Lab Results - Last 24 Hours (Table) 11/09/22 11/09/22 11/10/22 Range/Units 16:57 20:07 06:16 RBC 4.00 L (4.40-5.60) X 10*6/uL Hgb 11.5 L (13.0-17.0) d/dL Hct 36.8 L (39.6-50.0) % MCHC 31.3 L (32.0-37.0) d/dL Monocytes # 1.01 H (0.20-1.00) X 10*3/uL BUN/Creatinine Ratio (12.00-20.00) Ratio Glucose (70-110) mg/dL POC Glucose (mg/dL) 197 H 296 H (70-110) mg/dL Calcium (8.7-10.3) mg/dL Total Protein (6.2-8.2) d/dL Albumin (3.8-4.9) d/dL Albumin/Globulin Ratio (1.60-3.17) Ratio 11/10/22 11/10/22 11/10/22 Range/Units 06:16 06:20 11:33 RBC (4.40-5.60) X 10*6/uL Hgb (13.0-17.0) d/dL Hct (39.6-50.0) % MCHC (32.0-37.0) d/dL Monocytes # (0.20-1.00) X 10*3/uL BUN/Creatinine Ratio 21.14 H (12.00-20.00) Ratio Glucose 125 H (70-110) mg/dL POC Glucose (mg/dL) 137 H 146 H (70-110) mg/dL Calcium 8.0 L (8.7-10.3) mg/dL Total Protein 5.5 L (6.2-8.2) d/dL Albumin 3.2 L (3.8-4.9) d/dL Albumin/Globulin Ratio 1.39 L (1.60-3.17) Ratio Microbiology - Last 24 Hours (Table) 11/09/22 08:43 Gram Stain - Preliminary Foot - Right Wound Culture - Preliminary Strep agalactiae - (group b) Assessment and Plan (1) Foot osteomyelitis, right Current Visit: Yes Status: Acute Code(s): M86.9 - OSTEOMYELITIS, UNSPECIFIED SNOMED Code(s): 5968451949349504 (2) Diabetic foot ulcer Current Visit: Yes Status: Acute Code(s): E11.621 - TYPE 2 DIABETES MELLITUS WITH FOOT ULCER; L97.509 - NON-PRESSURE CHRONIC ULCER OTH PRT UNSP FOOT W UNSP SEVERITY SNOMED Code(s): 458162186 Plan: 1patient with extensive right second toe diabetic foot infection in this patient symptom has been going on for the last few months without ulceration and abnormal x-ray concerning for osteomyelitis failing outpatient oral antibiotic therapy. 2patient with a penicillin allergy that will limit the number of antibiotics safe to use. 3patient is status post vascular surgery evaluation for debridement and deep culture. 4-we will continue the patient on vancomycin and cefepime and Flagyl while waiting for the cultures to finalize Dictation was produced using [employer] dictation software. please excuse any grammatical, word or spelling errors. Time with Patient: Less than 30
--- NOTE | 2022-11-11 18:16 | P.PN ---
Subjective Progress Note Date: 11/11/22 Principal diagnosis: Right second toe diabetic foot infection/Osteomyelitis Patient is a 52-year-old male with a past medical history significant for diabetes mellitus DVT reflux hypertension osteoarthritis presenting to the ER concerning for the right second toe infection , patient did have problem with his stool for a few months patient foot x-ray did shows bony erosion concerning for osteomyelitis. Patient has been evaluated by vascular surgery and the patient is status post right second toe amputation completed 11/10/2022. on today's evaluation that is 11/11/2022, the patient remains to be afebrile, the patient is breathing comfortably , the patient denies having any chest pain or cough, the patient denies nausea and vomiting no abdominal pain and no d iarrhea, the patient denies any worsening pain to the right second toe amputation site Patient did have a white count 9.15, creatinine 0.6, blood cultures pending the culture culture with the Streptococcus agalactiae Objective - Vital Signs Vital signs: Vital Signs Temp 99.0 F 11/11/22 07:00 Pulse 79 11/11/22 08:00 Resp 17 11/11/22 08:00 BP 133/76 11/11/22 07:00 Pulse Ox 96 11/11/22 07:00 FiO2 Intake & Output 11/10/22 11/11/22 11/11/22 18:59 06:59 18:59 Intake Total 350 Output Total 5 Balance 345 Intake: IV 350 Output: Estimated Blood Loss 5 Other: # Voids 5 1 # Bowel Movements 1 - Exam GENERAL DESCRIPTION: Middle-aged male lying in bed in no distress RESPIRATORY SYSTEM: Unlabored breathing , decreased breath sounds at bases HEART: S1 S2 regular rate and rhythm , ABDOMEN: Soft , no tenderness EXTREMITIES: Right foot is currently dressed - Labs CBC & Chem 7: 11/11/22 05:55 11/11/22 05:55 Labs: Abnormal Lab Results - Last 24 Hours (Table) 11/10/22 11/10/22 11/10/22 Range/Units 06:16 16:03 16:54 RBC (4.40-5.60) X 10*6/uL Hgb (13.0-17.0) d/dL Hct (39.6-50.0) % BUN/Creatinine Ratio (12.00-20.00) Ratio Glucose (70-110) mg/dL POC Glucose (mg/dL) 123 H 117 H (70-110) mg/dL Hemoglobin A1c 11.9 H (<=6.0) % Calcium (8.7-10.3) mg/dL 11/10/22 11/11/22 11/11/22 Range/Units 21:16 05:55 05:55 RBC 4.08 L (4.40-5.60) X 10*6/uL Hgb 11.9 L (13.0-17.0) d/dL Hct 37.0 L (39.6-50.0) % BUN/Creatinine Ratio 22.67 H (12.00-20.00) Ratio Glucose 223 H (70-110) mg/dL POC Glucose (mg/dL) 293 H (70-110) mg/dL Hemoglobin A1c (<=6.0) % Calcium 8.6 L (8.7-10.3) mg/dL 11/11/22 11/11/22 Range/Units 06:33 12:38 RBC (4.40-5.60) X 10*6/uL Hgb (13.0-17.0) d/dL Hct (39.6-50.0) % BUN/Creatinine Ratio (12.00-20.00) Ratio Glucose (70-110) mg/dL POC Glucose (mg/dL) 211 H 296 H (70-110) mg/dL Hemoglobin A1c (<=6.0) % Calcium (8.7-10.3) mg/dL Microbiology - Last 24 Hours (Table) 11/09/22 08:23 Blood Culture - Preliminary Blood 11/09/22 08:37 Blood Culture - Preliminary Blood 11/09/22 08:43 Gram Stain - Preliminary Foot - Right Wound Culture - Preliminary Strep agalactiae - (group b) Assessment and Plan (1) Diabetic foot ulcer Current Visit: Yes Status: Acute Code(s): E11.621 - TYPE 2 DIABETES MELLITUS WITH FOOT ULCER; L97.509 - NON-PRESSURE CHRONIC ULCER OTH PRT UNSP FOOT W UNSP SEVERITY SNOMED Code(s): 595940456 (2) Foot osteomyelitis, right Current Visit: Yes Status: Acute Code(s): M86.9 - OSTEOMYELITIS, UNSPECIFIED SNOMED Code(s): 7284336988041358 Plan: 1patient with extensive right second toe diabetic foot infection in this patient symptom has been going on for the last few months without ulceration and abnormal x-ray concerning for osteomyelitis failing outpatient oral antibiotic therapy. 2patient with a penicillin allergy that will limit the number of antibiotics safe to use. 3patient is status post vascular surgery evaluation for debridement and deep culture. Initial culture are growing Streptococcus agalactiae 4-we will discontinue vancomycin and cefepime, start the patient cefazolin and continue with Flagyl, will need a PICC line for outpatient IV antibiotic discussed with the vascular surgeon Dictation was produced using [employer] dictation software. please excuse any grammatical, word or spelling errors. Time with Patient: Less than 30
[2022-11-11 20:55] LABS: Glucose,Whole Blood 410 mg/dL (70-110)
[2022-11-11] MEDS ORDERED: INSULIN ASPART (NovoLOG) 100 UNIT/ML VIAL SQ ONE (21:15)
[2022-11-11] MEDS ORDERED: INSULIN DETEMIR (LEVEMIR) 100 UNIT/ML SYR SQ SCH (21:30)
[2022-11-11] MEDS: LOSARTAN 50 MG TAB PO SCH (21:34)
[2022-11-12 06:12] LABS: HCT 37.1 % (39.0-53.0); MCH 29.8 pg (25.0-35.0); MCHC 32.5 g/dL (31.0-37.0); MCV 91.8 fL (80.0-100.0); Mean Platelet Volume 9.5; Platelet Count 165 k/uL (150-450); RBC 4.04 m/uL (4.30-5.90); RDW 12.2 % (11.5-15.5); WBC 7.7 k/uL (3.8-10.6)
[2022-11-12 06:13] LABS: Glucose,Whole Blood 233 mg/dL (70-110)
[2022-11-12 06:26] LABS: ALT 18 U/L (4-49); AST 26 U/L (17-59); African American GFR (CKD) >90 (>60 ml/min/1.73 sqM); Alkaline Phosphatase 66 U/L (38-126); Anion Gap 6 mmol/L; Blood Urea Nitrogen 16 mg/dL (9-20); Calcium 8.4 mg/dL (8.4-10.2); Carbon Dioxide 24 mmol/L (22-30); Chloride 103 mmol/L (98-107); Globulin 3.1 g/dL; Glucose 220 mg/dL (74-99); Non-African American GFR(CKD) >90 (>60 ml/min/1.73 sqM); Potassium 4.1 mmol/L (3.5-5.1); Sodium 133 mmol/L (137-145); Total Bilirubin 0.3 mg/dL (0.2-1.3); Total Protein 6.1 g/dL (6.3-8.2)
[2022-11-12] MEDS: SODIUM CHLORIDE 0.9% 1,000 ML IV SCH ×2 (06:28→17:57)
[2022-11-12] MEDS: INSULIN ASPART (NovoLOG) 100 UNIT/ML VIAL SQ SCH ×4 (06:55→21:28)
[2022-11-12] MEDS: INSULIN DETEMIR (LEVEMIR) 100 UNIT/ML SYR SQ SCH (06:55)
[2022-11-12] MEDS: NICOTINE 21MG/24HR PATCH TRANSDERM SCH (08:31)
[2022-11-12] MEDS: COLLAGENASE 250 UNIT/GM OINTMENT 30 GM TUBE TOPICAL SCH (08:31)
[2022-11-12] MEDS: ENOXAPARIN 40 MG/0.4 ML SYRINGE SQ SCH (08:31)
[2022-11-12] MEDS: PREGABALIN 50 MG CAP PO SCH ×2 (08:31→21:27)
[2022-11-12] MEDS: metroNIDAZOLE 500 MG TAB PO SCH ×3 (08:31→21:27)
[2022-11-12] MEDS: PROPRANOLOL 10 MG TAB PO SCH ×2 (08:31→21:27)
[2022-11-12] MEDS: PANTOPRAZOLE 40 MG TABLET PO SCH (08:31)
[2022-11-12] MEDS: FENOFIBRATE 160 MG TAB PO SCH (08:32)
[2022-11-12] MEDS: busPIRone HCl 10 MG TAB PO SCH ×2 (08:32→21:27)
[2022-11-12 12:18] LABS: Glucose,Whole Blood 286 mg/dL (70-110)
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
[2022-11-12] MEDS: HYDROcodone/APAP 5-325MG 1 EACH TAB PO PRN (14:02)
[2022-11-12 17:15] LABS: Glucose,Whole Blood 363 mg/dL (70-110)
--- NOTE | 2022-11-12 17:48 | P.PN ---
Subjective Progress Note Date: 11/12/22 Principal diagnosis: Right second toe diabetic foot infection/Osteomyelitis Patient is a 52-year-old male with a past medical history significant for diabetes mellitus DVT reflux hypertension osteoarthritis presenting to the ER concerning for the right second toe infection , patient did have problem with his stool for a few months patient foot x-ray did shows bony erosion concerning for osteomyelitis. Patient has been evaluated by vascular surgery and the patient is status post right second toe amputation completed 11/10/2022. on today's evaluation that is 11/12/2022, the patient denies any fever or any chills, the patient is breathing comfortably , the patient denies chest pain or cough, the patient denies nausea and vomiting no abdominal pain and no diarrhea has been reported, the patient denies any worsening pain to the right second toe amputation site Patient did have a white count 7.7, creatinine 0.57, blood cultures pending the culture culture with the Streptococcus agalactiae Objective - Vital Signs Vital signs: Vital Signs Temp 97.8 F 11/12/22 14:40 Pulse 70 11/12/22 14:40 Resp 16 11/12/22 14:40 BP 121/73 11/12/22 14:40 Pulse Ox 98 11/12/22 14:40 FiO2 Intake & Output 11/11/22 11/12/22 11/12/22 18:59 06:59 18:59 Output Total 1450 700 500 Balance -1450 -700 -500 Weight 99.337 kg Output: Urine 1450 700 500 Other: Voiding Method Bedside Commode Bedside Commode Urinal Urinal # Voids 3 3 - Exam GENERAL DESCRIPTION: Middle-aged male lying in bed in no distress RESPIRATORY SYSTEM: Unlabored breathing , decreased breath sounds at bases HEART: S1 S2 regular rate and rhythm , ABDOMEN: Soft , no tenderness EXTREMITIES: Right foot is currently dressed - Labs CBC & Chem 7: 11/12/22 05:52 11/12/22 05:52 Labs: Abnormal Lab Results - Last 24 Hours (Table) 11/11/22 11/12/22 11/12/22 Range/Units 20:54 05:52 05:52 RBC 4.04 L (4.30-5.90) m/uL Hgb 12.0 L (13.0-17.5) gm/dL Hct 37.1 L (39.0-53.0) % Sodium 133 L (137-145) mmol/L Creatinine 0.57 L (0.66-1.25) mg/dL Glucose 220 H (74-99) mg/dL POC Glucose (mg/dL) 410 H (70-110) mg/dL Total Protein 6.1 L (6.3-8.2) g/dL Albumin 3.0 L (3.5-5.0) g/dL 11/12/22 11/12/22 11/12/22 Range/Units 06:12 12:17 17:14 RBC (4.30-5.90) m/uL Hgb (13.0-17.5) gm/dL Hct (39.0-53.0) % Sodium (137-145) mmol/L Creatinine (0.66-1.25) mg/dL Glucose (74-99) mg/dL POC Glucose (mg/dL) 233 H 286 H 363 H (70-110) mg/dL Total Protein (6.3-8.2) g/dL Albumin (3.5-5.0) g/dL Microbiology - Last 24 Hours (Table) 11/09/22 08:23 Blood Culture - Preliminary Blood 11/09/22 08:37 Blood Culture - Preliminary Blood 11/10/22 15:55 Gram Stain - Preliminary Toe - Right Second Tissue Culture - Preliminary Strep agalactiae - (group b) Assessment and Plan (1) Diabetic foot ulcer Current Visit: Yes Status: Acute Code(s): E11.621 - TYPE 2 DIABETES MELLITUS WITH FOOT ULCER; L97.509 - NON-PRESSURE CHRONIC ULCER OTH PRT UNSP FOOT W UNSP SEVERITY SNOMED Code(s): 364986712 (2) Foot osteomyelitis, right Current Visit: Yes Status: Acute Code(s): M86.9 - OSTEOMYELITIS, UNSPECIFIED SNOMED Code(s): 3053840417719191 Plan: 1patient with extensive right second toe diabetic foot infection in this patient symptom has been going on for the last few months without ulceration and abnormal x-ray concerning for osteomyelitis failing outpatient oral antibiotic therapy. 2patient with a penicillin allergy that will limit the number of antibiotics safe to use. 3patient is status post vascular surgery evaluation for debridement and deep culture. Initial culture are growing Streptococcus agalactiae 4-patient to continue with cefazolin and continue with Flagyl, will need a PICC line for outpatient IV antibiotic , patient is preferring home IV antibiotics Dictation was produced using [employer] dictation software. please excuse any grammatical, word or spelling errors. Time with Patient: Less than 30
[2022-11-12 20:49] LABS: Glucose,Whole Blood 261 mg/dL (70-110)
[2022-11-12] MEDS: LOSARTAN 50 MG TAB PO SCH (21:27)
[2022-11-13] MEDS: HYDROmorphone 1 MG/ML 1 ML SYRINGE IVP PRN (00:05)
[2022-11-13 05:56] LABS: Glucose,Whole Blood 301 mg/dL (70-110)
[2022-11-13] MEDS: INSULIN ASPART (NovoLOG) 100 UNIT/ML VIAL SQ SCH ×4 (06:31→21:58)
[2022-11-13] MEDS: INSULIN DETEMIR (LEVEMIR) 100 UNIT/ML SYR SQ SCH (06:31)
[2022-11-13] MEDS: SODIUM CHLORIDE 0.9% 1,000 ML IV SCH ×2 (06:34→21:58)
[2022-11-13 08:21] VITALS: RESP 16
[2022-11-13] MEDS: NICOTINE 21MG/24HR PATCH TRANSDERM SCH (08:39)
[2022-11-13] MEDS: metroNIDAZOLE 500 MG TAB PO SCH ×3 (08:40→21:58)
[2022-11-13] MEDS: busPIRone HCl 10 MG TAB PO SCH ×2 (08:40→21:58)
[2022-11-13] MEDS: PANTOPRAZOLE 40 MG TABLET PO SCH (08:40)
[2022-11-13] MEDS: PREGABALIN 50 MG CAP PO SCH ×2 (08:40→21:58)
[2022-11-13] MEDS: PROPRANOLOL 10 MG TAB PO SCH ×2 (08:40→21:58)
[2022-11-13] MEDS: FENOFIBRATE 160 MG TAB PO SCH (08:40)
[2022-11-13] MEDS: HYDROcodone/APAP 5-325MG 1 EACH TAB PO PRN ×2 (08:40→22:21)
[2022-11-13] MEDS: COLLAGENASE 250 UNIT/GM OINTMENT 30 GM TUBE TOPICAL SCH (08:41)
[2022-11-13] MEDS: ENOXAPARIN 40 MG/0.4 ML SYRINGE SQ SCH (08:41)
[2022-11-13 08:55] LABS: HCT 36.3 % (39.6-50.0); HGB 11.5 d/dL (13.0-17.0); MCH 29.3 pg (27.0-32.0); MCHC 31.7 d/dL (32.0-37.0); MCV 92.4 FL (80.0-97.0); Mean Platelet Volume 12.3 FL (9.5-12.2); NRBC Per 100 WBC 0 X 10*3/uL (0.00-0.01); Platelet Count 236 X 10*3/uL (140-440); RBC 3.93 X 10*6/uL (4.40-5.60); RDW 12.3 % (11.5-14.5); WBC 6.88 X 10*3/uL (4.50-10.00)
[2022-11-13 09:25] LABS: BUN/Creat Ratio 19.29 Ratio (12.00-20.00); Blood Urea Nitrogen 13.5 mg/dL (9.0-27.0); Calcium 8.9 mg/dL (8.7-10.3); Carbon Dioxide 25.6 mmol/L (21.6-31.8); Chloride 97 mmol/L (96-109); Glucose 344 mg/dL (70-110); Potassium 4.7 mmol/L (3.5-5.5); Sodium 133 mmol/L (135-145)
--- NOTE | 2022-11-13 10:24 | PN ---
PROGRESS NOTE This patient had a ray amputation, right foot second toe for infected gangrene of the right foot second toe. Base of the wound is clean. We have been using Santyl cream. Today, we have changed the dressing. Wound culture came back as Streptococcus agalactiae group B. Plan is we will continue with local wound care. The patient is under the care of Infectious Disease. If the patient goes home, we will follow up in the wound clinic. MMODL / IJN: [id number] /
[2022-11-13 12:19] LABS: Glucose,Whole Blood 227 mg/dL (70-110)
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
[2022-11-13 17:35] LABS: Glucose,Whole Blood 250 mg/dL (70-110)
[2022-11-13 20:40] LABS: Glucose,Whole Blood 358 mg/dL (70-110)
[2022-11-13] MEDS: LOSARTAN 50 MG TAB PO SCH (21:58)
[2022-11-14 06:10] LABS: Glucose,Whole Blood 494 mg/dL (70-110)
[2022-11-14] MEDS: INSULIN ASPART (NovoLOG) 100 UNIT/ML VIAL SQ SCH (06:22)
[2022-11-14] MEDS: INSULIN DETEMIR (LEVEMIR) 100 UNIT/ML SYR SQ SCH (06:22)
--- NOTE | 2022-11-14 07:22 | P.PN ---
Subjective Progress Note Date: 11/13/22 Principal diagnosis: Right second toe diabetic foot infection/Osteomyelitis Patient is a 52-year-old male with a past medical history significant for diabetes mellitus DVT reflux hypertension osteoarthritis presenting to the ER concerning for the right second toe infection , patient did have problem with his stool for a few months patient foot x-ray did shows bony erosion concerning for osteomyelitis. Patient has been evaluated by vascular surgery and the patient is status post right second toe amputation completed 11/10/2022. On today's evaluation that is 11/13/2022, the patient denies having any fever or any chills, the patient is breathing comfortably, the patient denies having any chest pain shortness of breath or cough no nausea vomiting no abdominal pain or diarrhea, the patient pain to the right second toe amputation site is currently controlled. Patient did have white count of 6.8 creatinine 0.7 local culture with Streptococcus agalactiae blood culture has been negative Objective - Vital Signs Vital signs: Vital Signs Temp 98.1 F 11/13/22 07:00 Pulse 61 11/13/22 07:00 Resp 16 11/13/22 07:00 BP 131/75 11/13/22 07:00 Pulse Ox 99 11/13/22 07:00 FiO2 Intake & Output 11/12/22 11/13/22 11/13/22 18:59 06:59 18:59 Output Total 500 Balance -500 Output: Urine 500 Other: Voiding Method Bedside Commode Toilet Toilet Urinal Urinal Urinal # Voids 3 3 - Exam GENERAL DESCRIPTION: Middle-aged male lying in bed in no distress RESPIRATORY SYSTEM: Unlabored breathing , decreased breath sounds at bases HEART: S1 S2 regular rate and rhythm , ABDOMEN: Soft , no tenderness EXTREMITIES: Right foot is currently dressed - Labs CBC & Chem 7: 11/13/22 03:52 11/13/22 03:52 Labs: Abnormal Lab Results - Last 24 Hours (Table) 11/12/22 11/12/22 11/12/22 Range/Units 12:17 17:14 20:47 RBC (4.40-5.60) X 10*6/uL Hgb (13.0-17.0) d/dL Hct (39.6-50.0) % MCHC (32.0-37.0) d/dL MPV (9.5-12.2) FL Sodium (135-145) mmol/L Glucose (70-110) mg/dL POC Glucose (mg/dL) 286 H 363 H 261 H (70-110) mg/dL 11/13/22 11/13/22 11/13/22 Range/Units 03:52 03:52 05:55 RBC 3.93 L (4.40-5.60) X 10*6/uL Hgb 11.5 L (13.0-17.0) d/dL Hct 36.3 L (39.6-50.0) % MCHC 31.7 L (32.0-37.0) d/dL MPV 12.3 H (9.5-12.2) FL Sodium 133 L (135-145) mmol/L Glucose 344 H (70-110) mg/dL POC Glucose (mg/dL) 301 H (70-110) mg/dL Microbiology - Last 24 Hours (Table) 11/10/22 15:55 Gram Stain - Preliminary Toe - Right Second Tissue Culture - Preliminary Strep agalactiae - (group b) 11/09/22 08:23 Blood Culture - Preliminary Blood 11/09/22 08:37 Blood Culture - Preliminary Blood Assessment and Plan (1) Diabetic foot ulcer Current Visit: Yes Status: Acute Code(s): E11.621 - TYPE 2 DIABETES MELLITUS WITH FOOT ULCER; L97.509 - NON-PRESSURE CHRONIC ULCER OTH PRT UNSP FOOT W UNSP SEVERITY SNOMED Code(s): 366578855 (2) Foot osteomyelitis, right Current Visit: Yes Status: Acute Code(s): M86.9 - OSTEOMYELITIS, UNSPECIFIED SNOMED Code(s): 5767814985447653 Plan: 1patient with extensive right second toe diabetic foot infection in this patient symptom has been going on for the last few months without ulceration and abnormal x-ray concerning for osteomyelitis failing outpatient oral antibiotic therapy. 2patient with a penicillin allergy that will limit the number of antibiotics s afe to use. 3patient is status post vascular surgery evaluation and the patient s/p amputation of the right second toe cultures growing streptococci 4patient to continue cefazolin and Flagyl plan is for 6 weeks of antibiotic therapy and close outpatient follow-up Dictation was produced using [employer] software. please excuse any grammatical, word or spelling errors. Time with Patient: Less than 30
[2022-11-14] MEDS: PROPRANOLOL 10 MG TAB PO SCH (08:48)
[2022-11-14] MEDS: FENOFIBRATE 160 MG TAB PO SCH (08:48)
[2022-11-14] MEDS: NICOTINE 21MG/24HR PATCH TRANSDERM SCH (08:48)
[2022-11-14] MEDS: metroNIDAZOLE 500 MG TAB PO SCH (08:48)
[2022-11-14] MEDS: PANTOPRAZOLE 40 MG TABLET PO SCH (08:49)
[2022-11-14] MEDS: SODIUM CHLORIDE 0.9% 1,000 ML IV SCH (08:49)
[2022-11-14] MEDS: busPIRone HCl 10 MG TAB PO SCH (08:49)
[2022-11-14] MEDS: ENOXAPARIN 40 MG/0.4 ML SYRINGE SQ SCH (08:53)
[2022-11-14] MEDS: PREGABALIN 50 MG CAP PO SCH (08:56)
[2022-11-14] MEDS: HYDROcodone/APAP 5-325MG 1 EACH TAB PO PRN (08:58)
[2022-11-14] MEDS ORDERED: LIDOCAINE 1% PF 10 MG/ML (5 ML AMP) SQ ONE (09:37)
--- NOTE | 2022-11-14 10:02 | IR ---
PICC LINE PLACEMENT: HISTORY: Infection requiring long-term antibiotic therapy PROCEDURE: Ultrasound and fluoroscopic guidance of PICC line placement. COMPLICATIONS: None ANESTHESIA: 1. 1% Lidocaine locally. FINDINGS/TECHNIQUE: The procedure was explained to the patient. The risks, complications, benefits and alternatives were discussed and any questions were answered. Informed consent was obtained. The patient was placed supine on the fluoroscopic table and prepped and draped in the usual sterile fash ion. Utilizing a 21 gauge needle and sonographic and fluoroscopic guidance, access in the left basi lic vein was achieved and there is placement of a 0.018 guidewire. The vein is patent. A 4-F sheath was placed over the guidewire. The guidewire and dilator were removed and a 4-F. PICC line was plac ed through the sheath with the tip at the level of the SVC. The sheath was removed, the catheter was flushed and sutured into position. The patient was stable throughout the procedure and remained sta ble upon discharge from the Department of Radiology. The vein puncture was patent under ultrasound. A avila scale image was obtained to document patency of the vein punctured. All elements of the maximal barrier technique were utilized. FLUOROSCOPY TIME: DAP 0.2267Gy cm2 IMPRESSION: Successful PICC line placement under ultrasound and fluoroscopic guidance.
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
--- NOTE | 2022-11-14 15:33 | P.PN ---
Subjective Progress Note Date: 11/14/22 Principal diagnosis: Right second toe diabetic foot infection/Osteomyelitis Patient is a 52-year-old male with a past medical history significant for diabetes mellitus DVT reflux hypertension osteoarthritis presenting to the ER concerning for the right second toe infection , patient did have problem with his stool for a few months patient foot x-ray did shows bony erosion concerning for osteomyelitis. Patient has been evaluated by vascular surgery and the patient is status post right second toe amputation completed 11/10/2022. On today's evaluation that is 11/14/2022, the patient is afebrile, the patient is breathing comfortably , the patient denies chest pain and no significant cough, the patient denies nausea and vomiting no abdominal pain and no diarrhea ,, the patient pain to the right second toe amputation site is currently controlled. Patient did have white count of 6.8 creatinine 0.7 as of 11/13/2022 local culture with Streptococcus agalactiae blood culture has been negative Objective - Vital Signs Vital signs: Vital Signs Temp 98.4 F 11/14/22 07:00 Pulse 62 11/14/22 07:00 Resp 16 11/14/22 07:00 BP 132/73 11/14/22 07:00 Pulse Ox 97 11/14/22 07:00 FiO2 Intake & Output 11/13/22 11/14/22 11/14/22 18:59 06:59 18:59 Intake Total 118 296 Balance 118 296 Intake: Oral 118 296 Other: Voiding Method Toilet Toilet Urinal Urinal # Voids 1 1 # Bowel Movements 1 - Exam GENERAL DESCRIPTION: Middle-aged male lying in bed in no distress RESPIRATORY SYSTEM: Unlabored breathing , decreased breath sounds at bases HEART: S1 S2 regular rate and rhythm , ABDOMEN: Soft , no tenderness EXTREMITIES: Right foot is currently dressed - Labs CBC & Chem 7: 11/13/22 03:52 11/13/22 03:52 Labs: Abnormal Lab Results - Last 24 Hours (Table) 11/13/22 11/13/22 11/13/22 Range/Units 12:16 17:31 20:39 POC Glucose (mg/dL) 227 H 250 H 358 H (70-110) mg/dL 11/14/22 Range/Units 06:08 POC Glucose (mg/dL) 494 H (70-110) mg/dL Microbiology - Last 24 Hours (Table) 11/10/22 15:55 Gram Stain - Preliminary Toe - Right Second Tissue Culture - Preliminary Strep agalactiae - (group b) Group D Enterococcus Coagulase Negative Staph Streptococcus viridans group Assessment and Plan (1) Diabetic foot ulcer Status: Acute Code(s): E11.621 - TYPE 2 DIABETES MELLITUS WITH FOOT ULCER; L97.509 - NON-PRESSURE CHRONIC ULCER OTH PRT UNSP FOOT W UNSP SEVERITY SNOMED Code(s): 064494018 (2) Foot osteomyelitis, right Status: Acute Code(s): M86.9 - OSTEOMYELITIS, UNSPECIFIED SNOMED Code(s): 8011460129865559 Plan: 1patient with extensive right second toe diabetic foot infection in this patient symptom has been going on for the last few months without ulceration and abnormal x-ray concerning for osteomyelitis failing outpatient oral antibiotic therapy. 2patient with a penicillin allergy that will limit the number of antibiotics safe to use. 3patient is status post vascular surgery evaluation and the patient s/p amputation of the right second toe cultures growing streptococci 4 plan is for 6 weeks of IV cefazolin and oral Flagyl therapy and close outpatient follow-up, with weekly monitoring of CBC CRP sed rate and continue local wound care per his vascular surgeon with whom he will follow-up in the wound care center Dictation was produced using [employer] dictation software. please excuse any gramm atical, word or spelling errors. Time with Patient: Less than 30
[2022-11-14 15:43] VITALS: BP 132/73; PULSE 62; TEMP 98.4
== END 2022-11-14 11:30 | disposition home health service (06) | DRG 314 ==
LOC: EC 07:26 → OBSVTOIN 08:35 → 6NMEDSUR 08:35
PROVIDERS: ADMIT Hospitalist; ATTEND Hospitalist
PROC: 0Y6R0Z0 Detachment at Right 2nd Toe, Complete, Open Approach (ICD-10-PCS; principal; 2022-11-10 18:00)
PROC: 02HV33Z Insertion of Infusion Device into Superior Vena Cava, Percutaneous Approach (ICD-10-PCS; 2022-11-14)
DX: E11.52 Type 2 diabetes mellitus with diabetic peripheral angiopathy with gangrene (principal); E11.621 Type 2 diabetes mellitus with foot ulcer; E11.628 Type 2 diabetes mellitus with other skin complications; F17.200 Nicotine dependence, unspecified, uncomplicated; F25.9 Schizoaffective disorder, unspecified; F31.9 Bipolar disorder, unspecified; F41.9 Anxiety disorder, unspecified; I10 Essential (primary) hypertension; M86.9 Osteomyelitis, unspecified; L97.509 Non-pressure chronic ulcer of other part of unspecified foot with unspecified severity; Z79.2 Long term (current) use of antibiotics; Z79.4 Long term (current) use of insulin; Z79.84 Long term (current) use of oral hypoglycemic drugs; Z79.899 Other long term (current) drug therapy; Z82.49 Family history of ischemic heart disease and other diseases of the circulatory system; Z86.718 Personal history of other venous thrombosis and embolism; Z98.1 Arthrodesis status; Z88.0 Allergy status to penicillin
CPT/HCPCS: 36573; 80048; 80053; 80202; 83036; 83605; 85025; 85027; 85610; 85730; 87040; 87070; 87077; 87186; 87205; 96365; 96366; 96367; 96368; 99285

== ENCOUNTER 2023-05-28 09:55 | Emergency (ER) | payer BC, OTHER ==
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
[2023-05-28 10:19] VITALS: TEMP 97.9
--- NOTE | 2023-05-28 11:21 | XR ---
EXAMINATION TYPE: XR chest 2V DATE OF EXAM: 05/28/2023 COMPARISON: None INDICATION: Left-sided rib pain after fall TECHNIQUE: Frontal and lateral views of the chest are obtained. FINDINGS: The heart size is upper limits of normal for size. The pulmonary vasculature is normal. There is an approximately 1.6 to 2.1 cm density in the posterior right lung base. Additional workup w ith chest is recommended. No pneumothorax is evident. No displaced rib fractures are evident.. IMPRESSION: 1. No acute posttraumatic changes identified. No pneumothorax or rib fracture evident. 2. Possible nodular density right lower lobe. Additional workup with CT chest is recommended.
--- NOTE | 2023-05-28 11:25 | XR ---
EXAMINATION TYPE: XR humerus RT DATE OF EXAM: 05/28/2023 COMPARISON: Right shoulder 01/28/2012 HISTORY: Pain TECHNIQUE: 2 view right humerus FINDINGS: No acute fracture or dislocation is evident. Joint spaces appear preserved. Soft tissues ap pear normal. The acromial humeral joint space appears preserved. MRI can be performed if evaluation o f soft tissues with be of benefit. IMPRESSION: 1. No acute osseous abnormality right humerus
[2023-05-28 12:10] VITALS: BP 117/74; PULSE 74; RESP 20
== END 2023-05-28 11:52 | disposition home or self-care (01) ==
LOC: EC 09:55
DX: S46.912A Strain of unspecified muscle, fascia and tendon at shoulder and upper arm level, left arm, initial encounter (principal); R91.1 Solitary pulmonary nodule; F17.200 Nicotine dependence, unspecified, uncomplicated; Z88.0 Allergy status to penicillin; W18.30XA Fall on same level, unspecified, initial encounter
CPT/HCPCS: 71046; 99283; 99284